=== PATIENT | female | born 1950 | race Caucasian/White ===

== ENCOUNTER → 2018-01-15 13:18 | Outpatient (CLI) | payer BC | END | disposition home or self-care (01) | LOC: D.CT 13:18 | DX: R10.31 Right lower quadrant pain (principal) ==

== ENCOUNTER → 2018-04-20 11:06 | Outpatient (CLI) | payer BC, MEDICARE | END | disposition home or self-care (01) | LOC: D.US 04-15 16:30 | DX: I83.893 Varicose veins of bilateral lower extremities with other complications (principal) ==